=== PATIENT | female | born 1950 | race Caucasian/White ===

== ENCOUNTER 2024-09-05 08:38 | Day surgery (SDC) | payer MEDICARE, BC ==
[~2024-09-05] VITALS: Ht 167.6 cm; Wt 80.1 kg
[2024-09-05] VITALS (11 sets, daily range): BP systolic 104–158; BP diastolic 47–73
[~2024-09-05 08:38] MED LIST: ALBU90OI61 INH; ASCORBIC ACID500 MG PO; B-121000 MC1 SL; CEPH500 PO; ELIQUIS5 M3 PO; Flecainide Acet50 MG PO; GLUCOSAMINE &1 EACH PO; LOSARTAN POTASS25 M2 PO; Lopressor 25 mg25 MG PO; MECL12.5 PO; Nitrostat0.4 MG SL; Percocet 5-3251 EACH PO; Synthroid112 MCG PO; TURMERIC500 MG; Vitamin D1000 UNI1 PO; Voltaren100 GM TP; Zofran Odt4 MG SL
[2024-09-05] MEDS ORDERED: Ropivacaine 0.5% HCl/Pf 123.125 MG,EPINEPHrine HCL 0.25 MG,Ketorolac Tromethamine 15 MG... INFIL SCH (08:50)
[2024-09-05] MEDS ORDERED: OxyCODONE HCL 10 MG TABCR PO SCH (08:50)
[2024-09-05] MEDS ORDERED: Lactated Ringer's 1,000 ML IV SCH ×2 (08:50→10:25)
[2024-09-05] MEDS ORDERED: CeFAZolin Sodium 2,000 MG in NS 100 ML IV SCH ×2 (08:50→19:00)
[2024-09-05] MEDS ORDERED: Chlorhexidine Mouth Care 15 ML UDC MT SCH (08:50)
[2024-09-05] MEDS ORDERED: Tranexamic Acid 1,000 MG in NS 100 ML IV SCH (08:50)
[2024-09-05] MEDS ORDERED: Acetaminophen 500 MG Tab PO SCH ×2 (08:50→16:00)
[2024-09-05] MEDS ORDERED: FentaNYL Citrate 50 MCG/ML 2 ML Injection ONE (09:04)
[2024-09-05] MEDS ORDERED: propofoL 40 ML IV ONE (09:04)
[2024-09-05] MEDS ORDERED: CeFAZolin Sodium 2,000 MG VIAL ONE (09:13)
[2024-09-05] MEDS ORDERED: DILT60 PO (09:31)
[2024-09-05] MEDS ORDERED: Flecainide Ace150 MG PO (09:32)
[2024-09-05] MEDS ORDERED: Metoclopramide HCl 5MG / ML 2ML Vial IV PRN (10:20)
[2024-09-05] MEDS ORDERED: Magnesium Hydroxide Conc 10 ML UDC PO PRN (10:20)
[2024-09-05] MEDS ORDERED: Ondansetron HCl 2 MG / ML 2ML Vial IV PRN (10:20)
[2024-09-05] MEDS ORDERED: Promethazine HCl 25 MG Tab PO PRN (10:25)
[2024-09-05] MEDS ORDERED: HYDROmorphone HCl/Pf 1MG SYR IV PRN (10:25)
[2024-09-05] MEDS ORDERED: DiphenhydrAMINE HCL 25 MG Cap PO PRN (10:25)
[2024-09-05] MEDS ORDERED: FLU VACC TS2024-25(6MOS UP)/PF 45 MCG/0.5 ML SYRINGE IM SCH (10:25)
[2024-09-05] MEDS ORDERED: Bisacodyl 10 MG Supp PR PRN (10:25)
[2024-09-05] MEDS ORDERED: OxyCODONE HCL 5 MG TAB PO PRN ×2 (10:30)
[2024-09-05] MEDS ORDERED: dilTIAZem HCL 60 MG TAB PO PRN (10:30)
--- NOTE | 2024-09-05 10:34 | NUR ---
0920 History, Chart, Medications and Allergies reviewed before start of procedure.Lungs clear T/O to Auscultation. Pre-Op teaching done. Pt verbalizes understanding. SISTER AT BEDSIDE. VOIDED PRIOR TO GOING BACK TO OR
[2024-09-05] MEDS ORDERED: Flecainide Acetate 100 MG Tab PO PRN (10:35)
[2024-09-05] MEDS ORDERED: propofoL 50 ML IV ONE (10:44)
[2024-09-05] MEDS ORDERED: ePHEDrine Sulfate 50 MG/ML 1ML Injection ONE (11:14)
--- NOTE | 2024-09-05 11:45 | NUR ---
09/05/24 Kaye5 Nevaeh Ortiz UPON ENTRY TO OR, PLACED A SPINAL NERVE BLOCK FOR PATIENT.
[2024-09-05] MEDS ORDERED: propofoL 20 ML IV ONE (12:41)
--- NOTE | 2024-09-05 17:45 | NUR ---
Pt. is awake in a recliner when she welcomed my visit. Pt. is pleasant. Facilitated a life review and considered matters of kristina and belief. Pt. verbalized that she lost her in 2019. Listen with empathy and pastoral care. The life review conversation continued for a lengthy period. Pt. displayed evidence of awareness, engagement, and trust. When attending nurse brought dinner, I prayed with the Pt. Pt. verbalized gratitude for the spiritual care visit.
[2024-09-05] MEDS ORDERED: Ketorolac Tromethamine 15mg Vial IV SCH (18:00)
--- NOTE | 2024-09-05 19:30 | NUR ---
SHIFT SUMMARY POD0 R TKA, A/OX4, VSS, TOLERATING PO, PAIN WELL MANAGED, AMBULATING, REPORTS WANTING TO USE THE BATHROOM WHEN SHE GETS UP TO GET BACK TO BED. NO ACUTE EVENTS THIS SHIFT, CALL LIGHT IN REACH.
[2024-09-05] MEDS ORDERED: Docusate Sodium 100 MG Cap PO SCH (21:00)
[2024-09-06 03:09] VITALS: BP 114/53
--- NOTE | 2024-09-06 05:04 | NUR ---
SHIFT SUMMARY POD 1 R TKA PT ABLE TO SLEEP DURING THE NIGHT. PAIN MANAGED PER EMAR. TOLERATING PO INTAKE, VOIDING WELL. DRESSING TO R KNEE IS C/D/I. PT 1P ASST W/ FWW AND GB. VSS. PLAN FOR GETTING UP IN CHAIR, HAVING THERAPY AND THEN D/C HOME. NO OTHER CONCERNS AT THIS TIME, CALL LIGHT WITHIN REACH
[2024-09-06 05:06] LABS: BASOPHILS ABSOLUTE AUTO 0.16 K/mm3 (0.00-0.23); BASOPHILS PERCENT AUTO 1 % (0-2); EOSINOPHILS ABSOLUTE AUTO 0.22 K/mm3 (0.00-0.68); EOSINOPHILS PERCENT AUTO 2 % (0-6); Hematocrit 32.4 % (33.0-51.0); Hemoglobin 11.1 g/dL (11.5-16.0); IMMATURE GRAN ABSOLUTE AUTO 0.08 K/mm3 (0.00-0.10); IMMATURE GRAN PERCENT AUTO 1 % (0-1); LYMPHOCYTES ABSOLUTE AUTO 2.15 K/mm3 (0.84-5.20); LYMPHOCYTES PERCENT AUTO 19 % (21-46); MONOCYTES ABSOLUTE AUTO 0.78 K/mm3 (0.16-1.47); MONOCYTES PERCENT AUTO 7 % (4-13); Mean Corpuscular HGB 31.6 pg (26.0-34.0); Mean Corpuscular HGB Conc 34.3 g/dL (31.5-36.5); Mean Corpuscular Volume 92 fL (80-100); Mean Platelet Volume 10.2 fL (9.1-12.4); NEUTROPHILS PERCENT AUTO 71 % (41-73); Platelet Count 169 K/mm3 (150-400); RDW Coefficient Variation 13.3 % (11.7-14.2); RDW Standard Deviation 44.9 fL (35.1-46.3); Red Blood Cell Count 3.51 M/mm3 (3.80-5.20); White Blood Cell Count 11.49 K/mm3 (4.00-11.30)
[2024-09-06 05:26] LABS: Bun/Creatinine Ratio 17.5 (12.0-20.0); Calcium, Blood 8.6 mg/dL (8.5-10.1); Creatinine, Blood 0.8 mg/dL (0.40-1.00); Magnesium, Blood 1.9 mg/dL (1.6-2.4); Potassium, Blood 3.9 mmol/L (3.5-5.5)
[2024-09-06] MEDS ORDERED: Levothyroxine Sodium 0.112 MG Tab PO SCH (06:00)
[2024-09-06] MEDS ORDERED: PROMETHAZINE12.5 M1 PO (07:59)
[2024-09-06] MEDS ORDERED: OXAYDO5 M1 PO (07:59)
[2024-09-06 08:05] VITALS: BP 102/64
[2024-09-06] MEDS ORDERED: Apixaban 5 MG Tab PO SCH (09:00)
[2024-09-06] MEDS ORDERED: Ascorbic Acid 500 MG Tab PO SCH (09:00)
[2024-09-06] MEDS ORDERED: Losartan Potassium 25 MG Tab PO SCH (09:00)
[2024-09-06] MEDS ORDERED: Cholecalciferol 1000 Unit Tablet (=25MCG) PO SCH (09:00)
--- NOTE | 2024-09-06 10:13 | NUR ---
DISCHARGE SUMMARY POD1 R TKA, A/OX4, VSS, TOLERATING PO, PAIN WELL MANAGED, AMBULATING WELL, VOIDING POST OP. DRESSING CHANGED THIS AM BY SURGEON AT THE BEDSIDE, INCISION CLEANED WITH PEROXIDE AT THE TIME OF DRESSING CHANGE, DISTAL CIRCULATION INTACT, CAP REFIL <3 SECONDS, WIGGLES TOES. DISCUSSED DISCHARGE INSTRUCTIONS WITH HER INCLUDING HOME CARE, MEDICATIONS, FOLLOW UP APPOINTMENTS. NO QUESTIONS AT THIS TIME, ESCORTED OUT VIA WC TO PRIVATE AUTO TO GO HOME.
== END 2024-09-06 09:55 | disposition home or self-care (01) ==
LOC: ORSCMMR 08:38 → SURS 13:47 → ORSCMMR 13:47 → ORD 14:00 → ORSCMMR 14:00 → SURS 09-06 09:55
PROVIDERS: Orthopaedic Surgery
PROC: 0SRC0J9 Replacement of Right Knee Joint with Synthetic Substitute, Cemented, Open Approach (ICD-10-PCS; principal; 2024-09-05 10:45)
DX: M17.11 Unilateral primary osteoarthritis, right knee (principal); I48.91 Unspecified atrial fibrillation; Z79.01 Long term (current) use of anticoagulants; G47.33 Obstructive sleep apnea (adult) (pediatric); J45.909 Unspecified asthma, uncomplicated; E03.9 Hypothyroidism, unspecified; Z79.899 Other long term (current) drug therapy; Z87.891 Personal history of nicotine dependence
CPT/HCPCS: 36415; 73560-RT; 80048; 83735; 85025; 97110; 97116; 97161; 97530; A9270; C1713; C1776; J0171; J0690; J0735; J1885; J2704; J2795; J3010; J7120

== ENCOUNTER 2024-09-11 18:12 | Emergency (ER) | payer MEDICARE, BC ==
[~2024-09-11] VITALS: Ht 167.6 cm; Wt 79.4 kg
[~2024-09-11 18:12] MED LIST changes: +DILT60 PO; +Flecainide Ace150 MG PO; +OXAYDO5 M1 PO; +PROMETHAZINE12.5 M1 PO
[2024-09-11] MEDS ORDERED: FentaNYL Citrate 50 MCG/ML 2 ML Injection IV ONE (18:45)
[2024-09-11 19:03] VITALS: BP 145/61
[2024-09-11 19:23] LABS: BASOPHILS ABSOLUTE AUTO 0.15 K/mm3 (0.00-0.23); BASOPHILS PERCENT AUTO 2 % (0-2); EOSINOPHILS ABSOLUTE AUTO 0.14 K/mm3 (0.00-0.68); EOSINOPHILS PERCENT AUTO 1 % (0-6); Hematocrit 31.2 % (33.0-51.0); Hemoglobin 10.6 g/dL (11.5-16.0); IMMATURE GRAN ABSOLUTE AUTO 0.33 K/mm3 (0.00-0.10); IMMATURE GRAN PERCENT AUTO 3 % (0-1); LYMPHOCYTES ABSOLUTE AUTO 1.77 K/mm3 (0.84-5.20); LYMPHOCYTES PERCENT AUTO 18 % (21-46); MONOCYTES ABSOLUTE AUTO 0.65 K/mm3 (0.16-1.47); MONOCYTES PERCENT AUTO 7 % (4-13); Mean Corpuscular HGB 31.5 pg (26.0-34.0); Mean Corpuscular Volume 93 fL (80-100); Mean Platelet Volume 9.1 fL (9.1-12.4); NEUTROPHILS ABSOLUTE AUTO 6.84 K/mm3 (1.96-9.15); NEUTROPHILS PERCENT AUTO 69 % (41-73); Platelet Count 269 K/mm3 (150-400); RDW Coefficient Variation 13.1 % (11.7-14.2); RDW Standard Deviation 44.5 fL (35.1-46.3); Red Blood Cell Count 3.36 M/mm3 (3.80-5.20); White Blood Cell Count 9.88 K/mm3 (4.00-11.30)
[2024-09-11 19:49] LABS: Albumin, Blood 3.3 g/dL (3.4-5.0); Bilirubin, Total 1.4 mg/dL (0.1-1.0); Bun/Creatinine Ratio 15.6 (12.0-20.0); C-REACTIVE PROTEIN, EXT RANGE 3.24 mg/dL (0.000-0.300); Calcium, Blood 9.3 mg/dL (8.5-10.1); Creatinine, Blood 0.96 mg/dL (0.40-1.00); Globulin, Blood 3.4 g/dL (2.2-4.0); Potassium, Blood 3.9 mmol/L (3.5-5.5); Total Protein, Blood 6.7 g/dL (6.4-8.2)
== END 2024-09-11 21:40 | disposition home or self-care (01) ==
LOC: ER 18:12
PROVIDERS: Student in an Organized Health Care Education/Training Program
DX: M79.604 Pain in right leg (principal); I48.91 Unspecified atrial fibrillation; I10 Essential (primary) hypertension; E03.9 Hypothyroidism, unspecified; Z87.891 Personal history of nicotine dependence; Z79.899 Other long term (current) drug therapy; Z88.8 Allergy status to other drugs, medicaments and biological substances
CPT/HCPCS: 73562-RT; 80053; 85025; 85651; 86140; 93971; 96374; 99284-25; J3010